=== PATIENT | female | born 1930 | race Caucasian/White ===

== ENCOUNTER 2016-10-28 15:51 | Outpatient (CLI) | payer MEDICARE ==
[2016-10-28 22:29] LABS: Bilirubin Negative (Negative); Blood, Urine Negative (Negative); Clarity Clear (Clear); Glucose, Urine (Dipstick) Negative (Negative); Leukocyte Trace (Negative); Nitrite Negative (Negative); Protein, Urine (Dipstick) Negative (Neg-Trace); Urobilinogen 0.2 mg/dL (0.2-1.0)
[2016-10-28 22:37] LABS: Bacteria/HPF None Seen HPF (None Seen); RBC/HPF None Seen HPF (0-3); Squamous Epithelial None Seen HPF (0-3); WBC/HPF None Seen HPF (0-3)
== END 2016-10-28 15:52 | disposition home or self-care (01) ==
LOC: NAV LABSP 15:51
PROVIDERS: ATTEND Family Medicine
DX: N39.0 Urinary tract infection, site not specified (principal)
CPT/HCPCS: 81001; 87077; 87086; 87186

== ENCOUNTER 2016-11-16 15:03 | Outpatient (CLI) | payer MEDICARE ==
[2016-11-16 20:59] LABS: Hemoglobin A1c 5.3 % (4.0-6.0)
== END 2016-11-16 15:04 | disposition home or self-care (01) ==
LOC: NAV LABSP 15:03
PROVIDERS: ATTEND Family Medicine
DX: E11.9 Type 2 diabetes mellitus without complications (principal)
CPT/HCPCS: 83036